=== PATIENT | female | born 1965 | race Caucasian/White ===

== ENCOUNTER 2018-02-10 09:52 | Emergency (ER) | payer BC ==
[2018-02-10 10:24] VITALS: BP 126/79
--- NOTE | 2018-02-10 10:49 | UC ---
Throat Pain/Nasal Jaime HPI - HPI Summary HPI Summary: Pt c/o ferry terminal agent nasal congestion, sinus tenderness, PND and now reports gagging on mucus and vomiting. - History of Current Complaint Chief Complaint: UCGeneralIllness Stated Complaint: SINUSES,UPSET STOMACH Time Seen by Provider: 02/10/18 10:39 Hx Obtained From: Patient Hx Last Menstrual Period: n/a ?: No Onset/Duration: Gradual Onset, Lasting Weeks - 4 months, Still Present Severity: Moderate Pain Intensity: 5 Cough: Nonproductive Associated Signs & Symptoms: Positive: Sinus Discomfort - Epiglottits Risk Factors Epiglottis Risk Factors: Negative - Allergies/Home Medications Allergies/Adverse Reactions: Allergies Allergy/AdvReac Type Severity Reaction Status Date / Time environmental Allergy Congestion Uncoded 03/29/15 07:18 PMH/Surg Hx/FS Hx/Imm Hx Previously Healthy: Yes - Surgical History Surgical History: Yes Surgery Procedure, Year, and Place: essure - Family History Known Family History: Positive: Cardiac Disease - Social History Occupation: Employed Full-time Lives: With Family Alcohol Use: Occasionally Substance Use Type: None Smoking Status (MU): Never Smoked Tobacco Have You Smoked in the Last Year: No Household Exposure Type: Cigarettes Review of Systems Constitutional: Negative Skin: Negative Eyes: Negative ENT: Sinus Congestion, Sinus Pain/Tenderness, Other - PND Respiratory: Negative Cardiovascular: Negative Gastrointestinal: Negative Genitourinary: Negative Motor: Negative Neurovascular: Negative Musculoskeletal: Negative Neurological: Negative Psychological: Negative Is Patient Immunocompromised?: No All Other Systems Reviewed And Are Negative: Yes Physical Exam Triage Information Reviewed: Yes Appearance: Well-Appearing Vital Signs: Initial Vital Signs Temp 98.8 F 02/10/18 10:20 Pulse 78 02/10/18 10:20 Resp 17 02/10/18 10:20 BP 126/79 02/10/18 10:20 Pulse Ox 99 02/10/18 10:20 Vital Signs Reviewed: Yes Eye Exam: Normal ENT Exam: Other ENT: Positive: Nasal congestion, Sinus tenderness Neck exam: Normal Respiratory Exam: Normal Respiratory: Positive: No respiratory distress Cardiovascular Exam: Normal Musculoskeletal Exam: Normal Neurological Exam: Normal Psychological Exam: Normal Skin Exam: Normal Throat Pain/Nasal Course/Dx - Differential Dx/Diagnosis Differential Diagnosis/HQI/PQRI: Sinusitis, URI Provider Diagnoses: allergic sinusitis Discharge - Sign-Out/Discharge Documenting (check all that apply): Discharge/Admit/Transfer - Discharge Plan Condition: Stable Disposition: HOME Prescriptions: Cetirizine* [ZyrTEC 10 MG TAB*] 10 mg PO DAILY #20 tab Fluticasone NASAL SPRAY 50MCG* [Flonase NASAL SPRAY 50MCG*] 2 spray BOTH NARES DAILY #1 btl Guaifenesin/Pseudoephedrne HCl [Mucinex D ER 1,200-120 mg Tab] 1 each PO DAILY # 10 tab Patient Education Materials: Allergic Rhinitis (ED) Referrals: Pj Sauer MD [Medical Doctor] - Family [facility] [Primary Care Provider] - If Needed Miriam Calero MD [Medical Doctor] - - Billing Disposition and Condition Condition: STABLE Disposition: HOME
== END 2018-02-10 10:59 | disposition home or self-care (01) ==
LOC: UCCORT 09:52
DX: J30.9 Allergic rhinitis, unspecified (principal); Z77.22 Contact with and (suspected) exposure to environmental tobacco smoke (acute) (chronic)
CPT/HCPCS: 99212; G0463

== ENCOUNTER 2019-01-08 07:02 | Emergency (ER) | payer BC, MEDICAID ==
--- NOTE | 2019-01-08 07:49 | UC ---
Nausea/Vomiting/Diarrhea HPI - HPI Summary HPI Summary: Pt presents to - states starting at 430 pm yesterday develope abdominal bloating, nausea and chils. Pt states since this time has had repeated episodes of nonbilious, non bloody vomiting, diarreha. states as mild cramping improved with BM. States abd muscles "ache" no head congestion. Feels dehydrated. mild knutson, no vision changes. + sick contacts no dysuria, vaginal discharge no - History of Current Complaint Chief Complaint: UCGI Stated Complaint: CHILLS,VOMITING,DIARRHEA Time Seen by Provider: 01/08/19 07:48 Hx Obtained From: Patient Hx Last Menstrual Period: n/a ?: No Onset/Duration: Sudden Onset Timing: Constant Severity Initially: Moderate Severity Currently: Moderate Pain Intensity: 8 - Allergies/Home Medications Allergies/Adverse Reactions: Allergies Allergy/AdvReac Type Severity Reaction Status Date / Time environmental Allergy Congestion Uncoded 01/08/19 07:31 PMH/Surg Hx/FS Hx/Imm Hx Previously Healthy: Yes - Surgical History Surgical History: Yes Surgery Procedure, Year, and Place: essure - Family History Known Family History: Positive: Cardiac Disease, Non-Contributory - Social History Occupation: Employed Full-time Lives: With Family Alcohol Use: Occasionally Substance Use Type: None Smoking Status (MU): Never Smoked Tobacco Have You Smoked in the Last Year: No Household Exposure Type: Cigarettes Review of Systems All Other Systems Reviewed And Are Negative: Yes Constitutional: Positive: Fever - tactile, Chills Skin: Positive: Negative Eyes: Positive: Negative ENT: Positive: Negative Respiratory: Positive: Negative Cardiovascular: Positive: Negative Gastrointestinal: Positive: Abdominal Pain, Vomiting, Diarrhea, Nausea Motor: Positive: Negative Neurovascular: Positive: Negative Musculoskeletal: Positive: Negative Neurological: Positive: Headache Is Patient Immunocompromised?: No Physical Exam - Summary Physical Exam Summary: Vital Signs Reviewed: Yes A+Ox3, Pt with active vomiting in UC Eyes: Conjunctiva Clear, SOLO. EOM intact and full ENT: Hearing grossly normal TM x 2 clear,lips dry, membranes pasty, uvula midline, no exudate, no erythema Neck: Positive: Supple Respiratory: Positive: No respiratory distress, No accessory muscle use + CTA throughout no w/r Cardiovascular: RRR nl s1, s2 no m/r CBT <2 sec abd soft + BS scattered diffuse tenderness, no guarding, nd no guarding, no distension Musculoskeletal Exam: MCNEIL x 4 without difficulty Strength Intact, ROM Intact Neurological: Positive: Alert, + sensation throughout Psychological: Positive: Normal Response To Family Skin: Positive: no rash, no ecchymosis Triage Information Reviewed: Yes Vital Signs: Initial Vital Signs Temp 99.6 F 01/08/19 07:32 Pulse 112 01/08/19 07:32 Resp 22 01/08/19 07:32 BP 103/72 01/08/19 07:32 Pulse Ox 98 01/08/19 07:32 Re-Evaluation - Re-Evaluation First Eval Change: Improved - feeling better, no vomiting, nausing resolved Second Eval Change: Improved - fells well, trialing ice chips -will finish IVF Third Eval Comment: tolerated clear. VSS. will rx zofran. clears to bland. secretion precatuion. abd soft, pain resolved. strict return precuations Naus/Vom/Diarrhea Course/Dx - Course Course Of Treatment: Pt with n/v/d, aches since 4:30 yesterday no documented fever + chills VSS pt with active vomiting at appears dehydrated mild abdominal diffuse discomfort Will give IVF, zofran, pepcid close reassessment - Differential Dx/Diagnosis Provider Diagnosis: Nausea and vomiting, Mild dehydration Condition At Discharge: Stable Discharge - Sign-Out/Discharge Documenting (check all that apply): Patient Departure All imaging exams completed and their final reports reviewed: No Studies - Discharge Plan Condition: Stable Disposition: HOME Prescriptions: Famotidine TAB* [Pepcid 20 MG TAB*] 20 mg PO DAILY #30 tab Ondansetron ODT TAB* [Zofran 4 MG Odt TAB*] 4 mg PO Q6H PRN #10 tab.odt PRN Reason: Nausea Patient Education Materials: Acute Nausea and Vomiting (ED), Acute Diarrhea (ED ) Referrals: [facility] [Primary Care Provider] - Additional Instructions: - For the first 6 hours, eat and drink clears (water, issa jose, soup broth, jello, popsicles, Gatorade). If you tolerate this okay, add bland foods such as dry toast, scrambled eggs, crackers. Wait until you are feeling better for 24 hours before eating spicy food, acidic food, tomato based food, fried food. -These infections are spread by oral secretions. Do not share eating or drinking utensils. Frequent hand washing is important. Clean items that may get your secretions on them such as cell phones, ipads, computer mouse, television remotes. - Okay to take medication as prescribed for nausea - okay to take pepcid daily for stomach acid - get plenty of restful sleep - If you develop abdominal pain, uncontrolled vomiting, uncontrolled fever or any other concerns it is recommended you go to the emergency department for further evaluation and treatment - Billing Disposition and Condition Condition: STABLE Disposition: Home
[2019-01-08] MEDS ORDERED: Ondansetron ODT TAB* 4 MG PO ONE (07:50)
[2019-01-08] MEDS ORDERED: Ondansetron INJ* 2 MG/ML VIAL IV ONE (07:57)
[2019-01-08] MEDS ORDERED: Famotidine IV* 10 MG/ML 2 ML (20 mg) IV SLOW PU ONE (07:57)
[2019-01-08] MEDS ORDERED: NS 0.9% 1000 ML** 1,000 ML IV ONE (07:58)
[2019-01-08 08:27] LABS: Influenza A Molecular NEGATIVE (Negative); Influenza B Molecular NEGATIVE (Negative)
[2019-01-08 09:41] VITALS: BP 100/78
== END 2019-01-08 10:00 | disposition home or self-care (01) ==
LOC: UCCORT 07:02
DX: R11.2 Nausea with vomiting, unspecified (principal); E86.0 Dehydration; R10.84 Generalized abdominal pain
CPT/HCPCS: 96361; 96374; 96375; 99212; A9270-GY; G0463; J2405